=== PATIENT | male | born 1950 | race African-American/Black ===

== ENCOUNTER 2016-10-29 10:07 | Emergency (ER) | payer OTHER ==
[~2016-10-29] VITALS: Ht 188 cm; Wt 79.0 kg
[2016-10-29] MEDS ORDERED: KETOROLAC 60MG/2ML VIAL IM ONE (11:00)
[2016-10-29 11:41] VITALS: BP 149/84
== END 2016-10-29 11:45 | disposition home or self-care (01) ==
LOC: ER 10:33
DX: M10.9 Gout, unspecified (principal); I10 Essential (primary) hypertension; M25.561 Pain in right knee
CPT/HCPCS: 96372; 99283; J1885